=== PATIENT | female | born 1955 | race African-American/Black ===

== ENCOUNTER 2021-03-13 04:41 | Day surgery (SDC) | payer OTHER ==
[2021-03-12 11:52] VITALS: BMI 32.1
[2021-03-13] MEDS ORDERED: LIDOCAINE HCL 2% JELLY 10 ML CARTRIDGE ONE (09:20)
[2021-03-13] MEDS ORDERED: LIDOCAINE HCL 2% JELLY 10 ML CARTRIDGE TP ONE (09:40)
[2021-03-13 10:01] VITALS: TEMP 97.3
[2021-03-13 10:21] VITALS: PULSE 60
[2021-03-13 11:12] VITALS: BP 132/76
== END 2021-03-13 12:21 | disposition home or self-care (01) ==
LOC: JASU-ENDO 04:41
PROVIDERS: ATTEND Internal Medicine Gastroenterology
PROC: 06LY4CC Occlusion of Hemorrhoidal Plexus with Extraluminal Device, Percutaneous Endoscopic Approach (ICD-10-PCS; principal; 2021-03-13 12:15)
DX: K64.8 Other hemorrhoids (principal); K57.30 Diverticulosis of large intestine without perforation or abscess without bleeding

== ENCOUNTER 2022-01-15 04:59 | Day surgery (SDC) | payer OTHER ==
[2022-01-12 09:21] VITALS: BMI 31.9
[2022-01-15 12:11] VITALS: BP 149/77; PULSE 58; TEMP 98.2
== END 2022-01-15 13:38 | disposition home or self-care (01) ==
LOC: JASU-ENDO 04:59
PROVIDERS: ATTEND Internal Medicine Gastroenterology
PROC: 0DB68ZX Excision of Stomach, Via Natural or Artificial Opening Endoscopic, Diagnostic (ICD-10-PCS; principal; 2022-01-15 11:15)
DX: K29.50 Unspecified chronic gastritis without bleeding (principal); B96.81 Helicobacter pylori [H. pylori] as the cause of diseases classified elsewhere; K31.7 Polyp of stomach and duodenum; K44.9 Diaphragmatic hernia without obstruction or gangrene
CPT/HCPCS: 88305-TC; 88342-TC